=== PATIENT | female | born 1990 | race American Indian/Alaskan Native ===

== ENCOUNTER 2021-02-16 08:01 | Day surgery (SDC) | payer MEDICAID ==
--- NOTE | 2021-02-15 21:01 | History and Physical Report ---
History of Present Illness Date of examination: 02/14/21 Chief complaint: Undesired Fertility History of present illness: Pt is a 30 year old who presents for surgical sterilization. She is aware of long acting reversible contraceptive methods and she desires to proceed. Past History Past Medical History: no pertinent history Past Surgical History: no surgical history Family/Genetic History: diabetes, hypertension Social history: no significant social history - Obstetrical History : 3 Para: 2 Hx # Term Pregnancies: 2 Number of Pregnancies: 0 Spontaneous Abortions: 0 Induced : 1 Number of Living Children: 2 Medications and Allergies Allergies Allergy/AdvReac Type Severity Reaction Status Date / Time No Known Allergies Allergy Verified 02/10/21 16:20 Home Medications Medication Instructions Recorded Confirmed Last Taken Type Adult Multi Gummies 1 dose PO DAILY 02/08/21 02/08/21 Unknown History diphenhydrAMINE [Benadryl CAP] 25 mg PO QHS PRN 02/08/21 02/08/21 Unknown History Active Meds: Active Medications Acetaminophen (Acetaminophen 500 Mg Tab) 1,000 mg PO PREOP MARY Stop: 02/16/21 20:00 Celecoxib (Celecoxib 200 Mg Cap) 200 mg PO PREOP NR Stop: 02/16/21 20:00 Gabapentin (Gabapentin 300 Mg Cap) 300 mg PO PREOP NR Stop: 02/16/21 20:00 Lactated Ringer's (Lactated Ringers) 1,000 mls @ 100 mls/hr IV DIRECT MARY Stop: 02/16/21 23:59 Midazolam HCl (Midazolam 2 Mg/2 Ml Inj) 2 mg IV PREOP NR Stop: 02/16/21 23:00 Scopolamine (Scopolamine Transdermal Patch 72 Hr) 1 each TD PREOP NR Stop: 02/16/21 23:00 Review of Systems All systems: negative - Physical Exam Breasts: Positive: deferred Cardiovascular: Regular rate Lungs: Positive: Clear to auscultation Abdomen: Positive: soft Extremities: Positive: normal Results All other labs normal. Assessment and Plan A: Undesired Fertility P: Proceed with laparoscopic bilateral tubal ligation and other indicated procedures
[~2021-02-16 08:01] MED LIST: ACETAMINOPHEN 500 MG TAB PO SCH; CELECOXIB 200 MG CAP PO NR; GABAPENTIN 300 MG CAP PO NR; LACTATED RINGERS 1,000 ML IV SCH; MIDAZOLAM 2 MG/2 ML INJ IV NR; SCOPOLAMINE TRANSDERMAL PATCH 72 HR TD NR
[2021-02-16] MEDS ORDERED: ONDANSETRON 4 MG/2 ML INJ IV PRN (09:28)
[2021-02-16] MEDS ORDERED: oxyCODONE /ACETAMINOPHEN 5-325MG TAB PO PRN (09:28)
--- NOTE | 2021-02-16 09:28 | Anesthesia Day of Surgery ---
Anesthesia Day of Surgery - Day of Surgery Patient Examined: Yes Patient H&P Reviewed: Yes Patient is NPO: Yes
--- NOTE | 2021-02-16 09:28 | Anesthesia Consultation ---
Anesthesia Consult and Med Hx Date of service: 02/16/21 - Airway Anesthetic Teeth Evaluation: Good ROM Head & Neck: Adequate Mental/Hyoid Distance: Adequate Mallampati Class: Class II Intubation Access Assessment: Probably Good - Pre-Operative Health Status ASA Pre-Surgery Classification: ASA2 Proposed Anesthetic Plan: General - Pulmonary Hx Smoking: Yes (THC) Hx Respiratory Symptoms: No - Cardiovascular System Hx Hypertension: No - Central Nervous System CVA: No - Endocrine Hx Renal Disease: No Hx Liver Disease: No Hx Insulin Dependent Diabetes: No Hx Non-Insulin Dependent Diabetes: No Hx Thyroid Disease: No - Other Systems Hx Substance Use: Yes (THC) Hx Obesity: No - Additional Comments Anesthesia Medical History Comments: No prior GA. No FHx anesthetic complications.
[2021-02-16 09:45] LABS: Hematocrit 38.7 % (30.3-42.9); Mean Corpuscular HGB Conc 34 % (30-34); Mean Corpuscular Volume 90 fl (79-97); Platelet Count 190 K/mm3 (140-440); Red Blood Count 4.32 M/mm3 (3.65-5.03); Red Cell Distribution Width 12.6 % (13.2-15.2)
[2021-02-16] MEDS ORDERED: ROCURONIUM 50 MG/5 ML INJ IV ONE (10:05)
[2021-02-16] MEDS ORDERED: dexAMETHasone 20 MG/5 ML VIAL ONE (10:05)
[2021-02-16] MEDS ORDERED: ONDANSETRON 4 MG/2 ML INJ ONE ×2 (10:05→13:24)
[2021-02-16] MEDS ORDERED: LIDOCAINE PF 100 MG/5 ML (CARDIAC SYRINGE) IV ONE (10:05)
[2021-02-16] MEDS ORDERED: fentaNYL 100 MCG/2 ML INJ ONE (10:06)
[2021-02-16] MEDS ORDERED: propofoL 200 MG/20 ML VIAL IV ONE (10:06)
[2021-02-16] MEDS ORDERED: ceFAZolin/STERILE WATER 2 GM/20 ML SYRINGE IV NR (10:17)
[2021-02-16] MEDS ORDERED: BUPIVACAINE/PF (0.5%) 5 MG/1 ML 30 ML VIAL INFILTRATI ONE ×2 (10:26→10:59)
[2021-02-16] MEDS ORDERED: PHENYLEPHRINE/NS 1,000 MCG/10 ML SYRINGE (OR USE) IV ONE (10:37)
[2021-02-16] MEDS ORDERED: SODIUM CHLORIDE 0.9% IRR 1,500 ML BOTTLE IR ONE (10:59)
[2021-02-16] MEDS ORDERED: NEOSTIGMINE 10MG/10 ML INJ MDV ONE (11:04)
[2021-02-16] MEDS ORDERED: GLYCOPYRROLATE 0.4 MG/2 ML INJ ONE (11:04)
--- NOTE | 2021-02-16 11:35 | Operative Report ---
Operative Report Operative Report: Date of procedure: February 16, 2021 Preoperative diagnosis: 1) Multiparity desires permanent sterilization Postoperative diagnosis: Same Procedure: Laparoscopic Bilateral Tubal Ligation via Filshie clip method Surgeon: Janie Euceda M.D. Anesthesia: General endotracheal anesthesia Findings: 1) Anteverted uterus 2) Normal appearing uterus, fallopian tubes and ovaries Estimated blood loss: 10 mL IV fluid: 900 mL Urine output: 250 mL clear prior to the procedure Specimens: None Complications: None. Counts correct 2 Disposition: Stable to PACU Indications for procedure: This patient is a 30 year old who presents for surgical sterilization. She is aware of long acting reversible contraceptive methods but she desires to proceed. Operation in detail: After the risks, benefits, alternatives and complications of the procedure were explained to the patient, she gave informed consent for the procedure. She was subsequently taken to the operating room with her IV noted to be running well and placed in the dorsal supine position with sequential compression devices functioning. General endotracheal anesthesia was then induced without difficulty. An exam under anesthesia was then performed yielding a small mobile uterus. The patient was then placed in placement dorsal lithotomy position and prepped and draped in normal sterile fashion. A timeout was then performed. The bladder was then drained of urine yielding 250 mL of clear urine. An open sided speculum was placed into the vagina for visualization of the cervix. A single-tooth tenaculum was placed on the anterior lip of the cervix for traction. A uterine manipulator was then placed. The speculum was then removed from the vagina. The surgeon's gloves were then changed. Attention was then turned to entry into the abdominal cavity. A 5 mm infraumbilical incision was made with an 11 blade. The skin was grasped on eit her side of the umbilicus and tented up. The Veres needle was placed into the peritoneal cavity, confirmed with a saline drop test. The abdomen was then insufflated with CO2 gas to a pressure of 15 mmHg. A 5 mm Visiport trocar was then placed. An anatomic survey was then performed with findings as indicated above. A second trocar site was created 4 cm superior to the pubic symphysis in the midline measuring 8 mm. An 8 mm trocar was then placed under direct visualization. The patient was placed in the Trendelenburg position. The uterus was elevated, and two Filshie clips were then placed across both the right and left fallopian tubes respectively. At this time, all instruments were removed from the abdominal cavity. The pneumoperitoneum was released. The trocars were removed atraumatically. The incisions were then infiltrated with half percent Marcaine solution. The incisions were then reapproximated with 4-0 Monocryl in a subcuticular fashion and covered with skin glue. All instruments were then removed atraumatically from the vagina. At this time the procedure was ended. The patient was placed into the dorsal supine position and extubated without difficulty. She was subsequently taken to the PACU in stable condition. All instrument, needle and lap counts were correct 2.
--- NOTE | 2021-02-16 11:35 | Short Stay Summary ---
Short Stay Documentation Date of service: 02/16/21 - History H&P: dictated Social history: no significant social history - Allergies and Medications Current Medications: Allergies No Known Allergies Allergy (Verified 02/10/21 16:20) Home Medications Medication Instructions Recorded Confirmed Last Taken Type Adult Multi Gummies 1 dose PO DAILY 02/08/21 02/08/21 02/05/21 History diphenhydrAMINE [Benadryl CAP] 25 mg PO QHS PRN 02/08/21 02/08/21 02/05/21 History Active Medications Acetaminophen (Acetaminophen 500 Mg Tab) 1,000 mg PO PREOP MARY Stop: 02/16/21 20:00 Last Admin: 02/16/21 09:34 Dose: 1,000 mg Documented by: Cefazolin Sodium (Cefazolin/Sterile Water 2 Gm/20 Ml Syringe) 2 gm IV PREOP NR Stop: 02/16/21 13:00 Celecoxib (Celecoxib 200 Mg Cap) 200 mg PO PREOP NR Stop: 02/16/21 20:00 Last Admin: 02/16/21 09:34 Dose: 200 mg Documented by: Gabapentin (Gabapentin 300 Mg Cap) 300 mg PO PREOP NR Stop: 02/16/21 20:00 Last Admin: 02/16/21 09:34 Dose: 300 mg Documented by: Hydromorphone HCl (Hydromorphone 1 Mg/1 Ml Inj) 0.5 mg IV Q10MIN PRN PRN Reason: Pain , Severe (7-10) Stop: 02/16/21 23:00 Lactated Ringer's (Lactated Ringers) 1,000 mls @ 100 mls/hr IV DIRECT MARY Stop: 02/16/21 23:59 Last Admin: 02/16/21 09:25 Dose: 100 mls/hr Documented by: Midazolam HCl (Midazolam 2 Mg/2 Ml Inj) 2 mg IV PREOP NR Stop: 02/16/21 23:00 Last Admin: 02/16/21 09:50 Dose: 2 mg Documented by: Ondansetron HCl (Ondansetron 4 Mg/2 Ml Inj) 4 mg IV ONCE PRN PRN Reason: Nausea And Vomiting Stop: 02/16/21 12:00 Oxycodone/Acetaminophen (Oxycodone /Acetaminophen 5-325mg Tab) 1 tab PO ONCE PRN PRN Reason: Pain, Moderate (4-6) Stop: 02/16/21 12:00 Scopolamine (Scopolamine Transdermal Patch 72 Hr) 1 each TD PREOP NR Stop: 02/16/21 23:00 Last Admin: 02/16/21 09:35 Dose: 1 each Documented by: - Physical exam Breasts: deferred - Brief post op/procedure progress note Date of procedure: 02/16/21 Pre-op diagnosis: Undesired Fertility Post-op diagnosis: same Procedure: Laparoscopic Bilateral Tubal Ligation via Filshie Clip Method Anesthesia: GETA Findings: 1) Anteverted uterus 2) Normal appearing uterus, fallopian tubes and ovaries Surgeon: MORALES MIRANDA Estimated blood loss: minimal (10 mL) Pathology: none Specimen disposition: to lab Condition: stable - Hospital course Hospital course: Patient underwent laparoscopic bilateral tubal ligation which she tolerated well. She was observed in the PACU until she met discharge criteria. She will follow-up in the office in 2 weeks for an incision check. - Disposition Condition at discharge: Stable Disposition: DC- TO HOME OR SELFCARE - Discharge Diagnoses (1) Encounter for sterilization Status: Acute Short Stay Discharge Plan Activity: other (Nothing in the vagina, no intercourse, no baths for 4 wks ) Weight Bearing Status: Full Weight Bearing Diet: regular Wound: keep clean and dry Follow up with: PRIMARY MD CARLIN [Primary Care Provider] - 7 Days MORALES MIRANDA MD [Staff Physician] - 03/02/21 (Please call to schedule an incision check appt ) Prescriptions: Ibuprofen [Motrin] 800 mg PO Q8HR PRN #30 tablet PRN Reason: Pain, Moderate (4-6) oxyCODONE /ACETAMINOPHEN [Percocet 5/325] 1 tab PO Q6HR PRN #30 tablet PRN Reason: Pain
[2021-02-16] MEDS: HYDROmorphone 1 MG/1 ML INJ IV PRN ×3 (11:40→12:05)
[2021-02-16] MEDS ORDERED: oxyCODONE /ACETAMINOPHEN 5-325MG TAB ONE (13:10)
[2021-02-16] MEDS ORDERED: oxyCODONE /ACETAMINOPHEN 5-325MG TAB PO ONE (13:11)
--- NOTE | 2021-02-16 13:20 | Post Anesthesia Evaluation ---
- Post Anesthesia Evaluation Patient Participated: Yes Airway Patent: Yes Stable Respiratory Function: Yes Nausea/Vomiting: No Temp > 96.8F: Yes Pain Manageable: Yes Adequeate Hydration: Yes Anesthesia Complications: No
[2021-02-16] MEDS ORDERED: ONDANSETRON 4 MG/2 ML INJ IV NR (13:28)
[2021-02-16 13:34] VITALS: BP 137/78
== END 2021-02-16 14:10 | disposition home or self-care (01) ==
LOC: OR 08:01
PROVIDERS: ATTEND Obstetrics & Gynecology
DX: Z30.2 Encounter for sterilization (principal); D64.9 Anemia, unspecified; Z87.891 Personal history of nicotine dependence; Z79.899 Other long term (current) drug therapy; Z98.890 Other specified postprocedural states; Z72.89 Other problems related to lifestyle
CPT/HCPCS: 36415; 58671; 81025; 85027; J0690; J1100; J1170; J2001; J2250; J2370; J2405; J2704; J2710; J3010; J7120